=== PATIENT | female | born 1975 ===

== ENCOUNTER 2021-08-11 09:22 | Emergency (ER) | payer SELFPAY ==
[2021-08-11 09:30] VITALS: BP 88/58
--- NOTE | 2021-08-11 10:13 | Emergency Department Report ---
ED Lower Extremity HPI - General Chief Complaint: Extremity Injury, Lower Stated Complaint: LEFT KNEE PAIN Time Seen by Provider: 08/11/21 10:11 Source: patient Mode of arrival: Ambulatory Limitations: Language Barrier - History of Present Illness Initial Comments: Patient presents secondary to left knee pain. Pain is primarily in the medial aspect of the left knee. Described as aching. The pain is worse with movement and palpation. It is worse with weightbearing. She believes that she may have arthritis in the knee. She has been having pain for several days. It is worsened recently. There is no trauma. She denies any hip pain or ankle pain on the left side. There is no right-sided knee involvement. Patient denies any remote trauma either. - Related Data Previous Rx's Medication Instructions Recorded Last Taken Type Ibuprofen [Motrin] 600 mg PO Q8H PRN #30 tablet 08/11/21 Unknown Rx ED Review of Systems ROS: Stated complaint: LEFT KNEE PAIN Other details as noted in HPI Comment: All other systems reviewed and negative Constitutional: denies: fever Eyes: denies: eye pain ENT: denies: throat pain Respiratory: denies: cough Cardiovascular: denies: chest pain Endocrine: denies: unexplained weight loss Gastrointestinal: denies: abdominal pain Genitourinary: denies: dysuria Musculoskeletal: denies: back pain Skin: denies: rash Neurological: denies: headache Hematological/Lymphatic: denies: easy bruising ED Past Medical Hx - Past Medical History Previous Medical History?: No - Family History Family history: no significant - Medications Home Medications: Home Medications Medication Instructions Recorded Confirmed Last Taken Type Ibuprofen [Motrin] 600 mg PO Q8H PRN #30 tablet 08/11/21 Unknown Rx ED Physical Exam - General Limitations: No Limitations, Other (Pulse ox noted and normal) General appearance: alert, in no apparent distress - Head Head exam: Present: normocephalic - Eye Eye exam: Present: normal appearance, EOMI - ENT ENT exam: Present: normal exam, normal orophraynx - Neck Neck exam: Present: normal inspection. Absent: meningismus - Respiratory Respiratory exam: Present: normal lung sounds bilaterally. Absent: respiratory distress - Cardiovascular Cardiovascular Exam: Present: regular rate, normal rhythm - GI/Abdominal GI/Abdominal exam: Present: soft - Extremities Exam Extremities exam: Present: normal capillary refill, other (There is tenderness with palpation over the medial meniscus involving the left knee. There is no effusion. There is no ligamentous instability with anterior posterior drawer. There is no warmth erythema). Absent: calf tenderness - Back Exam Back exam: Absent: CVA tenderness (R), CVA tenderness (L) - Neurological Exam Neurological exam: Present: alert, oriented X3, CN II-XII intact, normal gait - Psychiatric Psychiatric exam: Present: normal affect, normal mood - Skin Skin exam: Present: warm ED Course Vital Signs 08/11/21 09:28 Temperature 97.9 F Pulse Rate 61 Respiratory 18 Rate Blood Pressure 88/58 [Right] O2 Sat by Pulse 97 Oximetry - Reevaluation(s) Reevaluation #1: 08/11/21 10:18 Patient was discharged. Old records reviewed. ED Lower Extremity MDM - Medical Decision Making Patient presented with nontraumatic knee pain. There is no indication for x- rays. Gait is normal. I am not concerned for acute fracture or dislocation. She does not have any history of cancer. It would be unlikely this represents any type of lytic lesion or pathologic fracture. There is no warmth or erythema or effusion that would suggest a septic arthritis. Patient can follow-up with analgesics and consideration of outpatient MRI. Critical Care Time: No Critical care attestation.: If time is entered above; I have spent that time in minutes in the direct care of this critically ill patient, excluding procedure time. ED Disposition Clinical Impression: Left knee pain Qualifiers: Chronicity: acute Qualified Code(s): M25.562 - Pain in left knee Disposition: 01 HOME / SELF CARE / HOMELESS Is pt being admited?: No Condition: Stable Instructions: Acute Knee Pain, Adult, How to Use Cold Therapy, [id number] Additional Instructions: ICE AND ELEVATE. SPEAK TO YOUR DOCTOR ABOUT AN MRI. RETURN FOR PROBLEMS. Prescriptions: Ibuprofen [Motrin] 600 mg PO Q8H PRN #30 tablet PRN Reason: Pain Referrals: PRIMARY CARE, [Referring] - 3-5 Days Print Language: [place]
== END 2021-08-11 10:54 | disposition home or self-care (01) ==
LOC: ED 09:22
DX: M25.562 Pain in left knee (principal)
CPT/HCPCS: 99282